=== PATIENT | male | born 1965 | race Caucasian/White ===

== ENCOUNTER 2017-01-17 21:31 | Inpatient (IN) | payer OTHER ==
[~2017-01-17] VITALS: Ht 180.3 cm; Wt 76.2 kg
[~2017-01-17 21:31] MED LIST: ALBU18HF2 INH; ASPI81TA2 PO; CARV3.122 PO; FURO20TA4 PO; INSU3INS6 SQ
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
[2017-01-17] MEDS ORDERED: IV NS 0.9% 1,000 ML BAG IV ONE (22:00)
[2017-01-17] MEDS ORDERED: IV NS 0.9% 1,000 ML ONE (22:02)
[2017-01-17] MEDS ORDERED: IV SET PRIMARY 1 EA INFUS.SET MC ONE (22:02)
[2017-01-17 22:03] LABS: BASOPHILS # (AUTO) 0.1 /CMM (0.0-0.2); BASOPHILS % (AUTO) 0.8 % (0.0-2.0); EOSINOPHILS # (AUTO) 0.3 /CMM (0.0-0.7); EOSINOPHILS % (AUTO) 3.1 % (0.0-6.0); HEMATOCRIT 33 % (39-51); HEMOGLOBIN 10.7 g/dL (13.5-17.5); LYMPHOCYTES # (AUTO) 2.5 /CMM (0.8-4.8); LYMPHOCYTES % (AUTO) 27.7 % (20.0-44.0); MEAN CORPUSCULAR HEMOGLOBIN 27 PG (26.0-33.0); MEAN CORPUSCULAR HGB CONC 32 g/dl (31.0-36.0); MEAN CORPUSCULAR VOLUME 85 fL (80-96); MONOCYTES # (AUTO) 0.4 /CMM (0.1-1.30); NEUTROPHILS # (AUTO) 5.8 /CMM (1.8-8.9); NEUTROPHILS % (AUTO) 64.4 % (43.0-81.0); PLATELET COUNT (AUTO) 312 /CMM (150-450); RDW COEFFICIENT OF VARIATION 20.9 (11.5-15.0); RED BLOOD CELL COUNT(AUTO) 3.91 MIL/uL (4.5-6.0); WHITE BLOOD COUNT (AUTO) 9.1 K/uL (4.3-11.0)
[2017-01-17 22:14] LABS: CALCIUM, SERUM 8.6 mg/dL (8.5-10.1); CREATININE 1.1 mg/dL (0.6-1.3)
--- NOTE | 2017-01-17 22:15 | NUR ---
PT LEFT FOR CT VIA GURNEY.
[2017-01-17 22:19] LABS: BILIRUBIN,DIRECT 0.3 mg/dL (0.0-0.2); BILIRUBIN,TOTAL 0.8 mg/dL (0.2-1.0); TOTAL PROTEIN, SERUM 7.2 g/dL (6.4-8.2)
[2017-01-17 22:21] LABS: TROPONIN I 0.228 ng/mL (0.00-0.056)
[2017-01-17 22:27] LABS: INR 1.06 (0.87-1.13); PROTHROMBIN TIME 11.4 SECS (9.5-12.7)
--- NOTE | 2017-01-17 22:30 | NUR ---
PT RETURNED FROM CT.
--- NOTE | 2017-01-17 22:39 | NUR ---
CALLING REPORT TO MAINTENANCE JOB TITLES.
--- NOTE | 2017-01-17 22:47 | NUR ---
PT TRYING TO STAND. C/O GENERALIZED BODY PAIN WITH MOVEMENT TO STANDING POSITION.
--- NOTE | 2017-01-17 22:55 | NUR ---
PT REC'D 500 ML NS. 1L IVF STOPPED PER SPOILAGE WORKER.
--- NOTE | 2017-01-17 23:06 | NUR ---
RAFAEL RAND AT THE BEDSIDE SUTURING PT'S CHIN LACERATION
--- NOTE | 2017-01-17 23:15 | NUR ---
ADDITIONAL 500ML NS NOT GIVEN AND WASTED PER Isidra GAY NP.
--- NOTE | 2017-01-17 23:16 | NUR ---
PT REC'D 4 SUTURES.
--- NOTE | 2017-01-17 23:41 | NUR ---
Malu anderson in EDM - 01/18/17 at 0005 by ROSA pt left for ct via [facility] with violet palacios rn, dr. burns t liliana, ellyn and rt rios.
--- NOTE | 2017-01-17 23:45 | NUR ---
Malu anderson in LAST - 01/18/17 at 0006 by ROSA pt rec'd 5mg im verseed L [facility].
[2017-01-17 23:55] LABS: DIGOXIN < 0.20 ng/mL (0.90-2.00); MAGNESIUM 1.4 mg/dL (1.8-2.4)
--- NOTE | 2017-01-17 23:56 | NUR ---
UPGRADED TO [facility] BED 115-1
[2017-01-18] VITALS (7 sets, daily range): BP systolic 89–132; BP diastolic 52–83
--- NOTE | 2017-01-18 00:01 | NUR ---
Malu anderson in ED - 01/18/17 at 0011 by ROSA pt rec'd 2 mg ativan IM by sarah beth palacios rn in [facility].
--- NOTE | 2017-01-18 00:13 | NUR ---
PT TRANSPORTED TO [facility] VIA GURNEY PER PROTOCOL.
--- NOTE | 2017-01-18 00:20 | NUR ---
INFORMATION CLERK CASHIER INITIAL NOTES RECEIVED PT IN A GURNEY, PT IS A/O X3, SLURRED SPEECH, PATIENT IS VERBAL.ON ROOM AIR, SATURATING 97%, ON TELEMONITOR AFLUTTER, HR 120, COMPLAINED OF GENERALIZED BODY PAIN MAINLY IN THE RIB AREA, BODY ASSESSMENT DONE, NOTED A LOWER EXTREMITIES MILD WEAKNESS, L AC 18 G IV SITE PATENT AND FLUSHED. ASSISTED PATIENT WITH ADLS, AND CARE, ORIENTED PT IN ROOM, ALL SAFETY MEASURES MAINTAINED. CALL LIGHTS WITHIN REACH.
[2017-01-18] MEDS ORDERED: MAGNESIUM HYDROXIDE 30 ML UDC PO PRN (00:30)
[2017-01-18] MEDS ORDERED: DILTIAZEM HCL 50 MG IV IV ONE (00:30)
[2017-01-18] MEDS ORDERED: ACETAMINOPHEN 325 MG TABLET PO PRN (00:30)
[2017-01-18] MEDS ORDERED: DILTIAZEM HCL 50 MG IV ONE (00:30)
[2017-01-18] MEDS ORDERED: ONDANSETRON HCL/PF 4 MG/2 ML VIAL IVP PRN (00:30)
[2017-01-18] MEDS ORDERED: MAG HYDROX/AL HYDROX/SIMETH 30 ML UDC PO PRN (00:30)
--- NOTE | 2017-01-18 00:36 | NUR ---
CABRERA NOTES PT IS GIVEN CARDIZEM IV PUSH ONE TIME ORDER AND CARDIZEM PO STAT. WILL MONITOR Addendum: 01/18/17 at 0638 by RAMSEY BABIN RN CARDIZEM 10MG IV PUSH ONE TIME ORDER AND CARDIZEM PO 30MG
[2017-01-18] MEDS ORDERED: DIGO125T PO (00:50)
[2017-01-18] MEDS ORDERED: CARV3.122 PO (00:50)
[2017-01-18] MEDS ORDERED: POTA10CA43 PO (00:50)
[2017-01-18] MEDS ORDERED: FLUO25PO10 MC (00:50)
[2017-01-18] MEDS ORDERED: LISI-607 PO (00:50)
[2017-01-18] MEDS ORDERED: AMIO200T2 PO (00:50)
[2017-01-18] MEDS ORDERED: MIRT15TA7 PO (00:50)
[2017-01-18] MEDS ORDERED: DEXTROSE 50%-WATER 50 ML DISP.SYRIN IV PRN (01:00)
[2017-01-18] MEDS ORDERED: Magnesium 1GM/D5W 100ML PREMIX 100 ML IV SCH (01:30)
[2017-01-18] MEDS ORDERED: Magnesium 1GM/D5W 100ML PREMIX 100 ML IV ONE (01:35)
[2017-01-18] MEDS ORDERED: IV SET PRIMARY PUMP SET 1 EA INFUS.SET MC ONE ×2 (01:35→15:11)
[2017-01-18] MEDS ORDERED: MORPHINE SULFATE INJ 2 MG/ML DISP.SYRIN ONE (01:37)
[2017-01-18] MEDS: MORPHINE SULFATE INJ 2 MG/ML DISP.SYRIN IV PRN ×3 (01:44→21:50)
[2017-01-18] MEDS ORDERED: LORAZEPAM INJ 2 MG/ML VIAL IV PRN (02:00)
[2017-01-18] MEDS ORDERED: DILTIAZEM HCL 30 MG TABLET ONE ×2 (02:28→06:14)
[2017-01-18] MEDS ORDERED: DILTIAZEM HCL 30 MG TABLET PO ONE (02:30)
[2017-01-18] MEDS ORDERED: DILTIAZEM HCL 30 MG TABLET PO SCH (02:30)
[2017-01-18 04:58] LABS: MAGNESIUM 1.6 mg/dL (1.8-2.4); PHOSPHORUS 3.8 mg/dL (2.5-4.9)
--- NOTE | 2017-01-18 06:35 | NUR ---
RN NOTES PT HAD 16BEAT VTACH. ASYMPTOMATIC, CARDIZEM 30 MG PO GIVEN ORDERED, WILL CONTINUE TO MONITOR
[2017-01-18] MEDS: DILTIAZEM HCL 30 MG TABLET PO SCH ×2 (06:36→11:45)
[2017-01-18] MEDS: BLOOD SUGAR DIAGNOSTIC 1 EACH STRIP IN SCH ×4 (06:39→21:49)
--- NOTE | 2017-01-18 07:15 | NUR ---
INSIDE FINISHER NOTES NO SIGNIFICANT CHANGES OVERNIGHT, PT IS SLEEPING COMFORTABLY, ON TELE MONITOR AFIB-AFLUTTER. WILL CONTINUE TO MONITOR. IV SITE CDI, NO S/SX OF INFECTION OR INFILTRATION NOTED. NO RESPIRATORY DISTRESS NOTED, ALL MEDS GIVEN ORDERED, ALL SAFETY MEASURES MAINTAINED. CALL LIGHT WITHIN REACH.
--- NOTE | 2017-01-18 07:30 | NUR ---
BALLER TENDER RECEIVED PT IN BED AO X3, ON 2L NC COMPLAINING OF JAW PAIN FROM FALL SUTURES INTACT LOWER JAW NO BLEEDING NOTED, AFIB A FLUTTER ON MONITOR HR LOW 100S, SBP STABLE PT ABLE TO EAT APPLIED DVT PUMP, IV ACCESS PATENT FALL PRECAUTIONS TAKEN CALL LIGHT W./ IN REACH, PT DENIES OF ANY CHEST PAIN OR DISCOMFORT.
[2017-01-18] MEDS ORDERED: LISINOPRIL (5MG) 5 MG TABLET PO SCH (09:00)
[2017-01-18] MEDS ORDERED: ASPIRIN 81 MG TAB.CHEW PO SCH (09:00)
[2017-01-18] MEDS: CARVEDILOL 3.125 MG TABLET PO SCH ×2 (09:00→16:10)
[2017-01-18] MEDS ORDERED: CARVEDILOL 3.125 MG TABLET PO SCH (09:00)
[2017-01-18] MEDS ORDERED: HEPARIN SODIUM, PORCINE 5000 UNITS/1 ML VIAL SQ SCH (09:00)
[2017-01-18] MEDS: FUROSEMIDE 20 MG TABLET PO SCH ×2 (09:32→17:48)
[2017-01-18] MEDS: FLUOXETINE HCL 20 MG CAPSULE PO SCH (09:32)
[2017-01-18] MEDS: POTASSIUM CHLORIDE 10 MEQ TABLET.SA PO SCH (09:32)
[2017-01-18] MEDS: PANTOPRAZOLE 40 MG TABLET.DR PO SCH (09:33)
[2017-01-18] MEDS: AMIODARONE HCL 200 MG TABLET PO SCH (09:39)
[2017-01-18] MEDS: DIGOXIN 0.125 MG TABLET PO SCH (11:45)
[2017-01-18] MEDS: Magnesium 1GM/D5W 100ML PREMIX 100 ML IV SCH ×2 (15:15→16:11)
[2017-01-18] MEDS ORDERED: GUAIFENESIN/CODEINE 10 ML UDC PO PRN (17:00)
[2017-01-18] MEDS: MIRTAZAPINE 15 MG TABLET PO SCH (17:48)
--- NOTE | 2017-01-18 18:15 | NUR ---
TERRITORY ACCOUNT REPRESENTATIVE PT IN BED NO CHANGES IN PT CONDITION, NO COMPLAIN OF CHEST PAIN OR DISCOMFORT, PT SBP BEEN LOW HELD BP MED DR. HERRERA IS AWARE AND MADE SOME ADJUSTMENTS, ALL PT NEEDS MEET FALL PRECAUTIONS TAKEN WILL GIVE REPORT TO PM NURSE FOR CONTINUITY OF CARE.
--- NOTE | 2017-01-18 19:30 | NUR ---
ELECTRICAL SYSTEMS DESIGNER INITIAL NOTE RECEIVED PT IN BED. A/O X4 AND ABLE TO MAKE NEEDS KNOWN. ON ROOM AIR AND SATING WELL. [id number].IV SITE CLEAN, INTACT AND PATENT, FLUSHING WELL.CALL LIGHT WITHIN EASY REACH AT ALL TIMES. WILL CONTINUE TO MONITOR.
[2017-01-18] MEDS: INSULIN DETEMIR 100 UNIT/ML CARTRIDGE SQ SCH (22:00)
--- NOTE | 2017-01-18 22:07 | NUR ---
RN NOTE PT REFUSED LEVEMIR 12 UNITS. BLOOD SUGAR 138 PT REFUSED INSULIN COVERAGE. EDUCATED PT ON RISKS AND BENEFITS. PT STILL REFUSED. WILL CONTINUE TO MONITOR.
[2017-01-19] VITALS: BP 110/78
[2017-01-19 04:00] VITALS: BP 103/72
[2017-01-19 06:40] LABS: BASOPHILS # (AUTO) 0.1 /CMM (0.0-0.2); EOSINOPHILS # (AUTO) 0.3 /CMM (0.0-0.7); EOSINOPHILS % (AUTO) 2.6 % (0.0-6.0); HEMATOCRIT 35 % (39-51); HEMOGLOBIN 11.1 g/dL (13.5-17.5); LYMPHOCYTES # (AUTO) 1.8 /CMM (0.8-4.8); LYMPHOCYTES % (AUTO) 18.6 % (20.0-44.0); MEAN CORPUSCULAR HEMOGLOBIN 28 PG (26.0-33.0); MEAN CORPUSCULAR HGB CONC 32 g/dl (31.0-36.0); MEAN CORPUSCULAR VOLUME 86 fL (80-96); MONOCYTES # (AUTO) 0.6 /CMM (0.1-1.30); MONOCYTES % (AUTO) 6.3 % (2.0-12.0); NEUTROPHILS # (AUTO) 7.1 /CMM (1.8-8.9); NEUTROPHILS % (AUTO) 71.5 % (43.0-81.0); PLATELET COUNT (AUTO) 274 /CMM (150-450); RDW COEFFICIENT OF VARIATION 20.6 (11.5-15.0); RED BLOOD CELL COUNT(AUTO) 4.02 MIL/uL (4.5-6.0); WHITE BLOOD COUNT (AUTO) 9.9 K/uL (4.3-11.0)
--- NOTE | 2017-01-19 07:00 | NUR ---
RECEIVED PT IN BED AO X3, ON 2L NC COMPLAINING OF JAW PAIN FROM FALL SUTURES INTACT LOWER JAW NO BLEEDING NOTED, AFIB A FLUTTER ON MONITOR HR LOW 100S, SBP STABLE PT ABLE TO EAT APPLIED DVT PUMP, IV ACCESS PATENT FALL PRECAUTIONS TAKEN .CALL LIGHT W./ IN REACH, PT DENIES OF ANY CHEST PAIN OR DISCOMFORT.
[2017-01-19] MEDS: BLOOD SUGAR DIAGNOSTIC 1 EACH STRIP IN SCH ×4 (07:12→21:26)
[2017-01-19] MEDS: PANTOPRAZOLE 40 MG TABLET.DR PO SCH ×2 (07:15→09:07)
[2017-01-19 07:21] LABS: CALCIUM, SERUM 7.9 mg/dL (8.5-10.1); MAGNESIUM 1.6 mg/dL (1.8-2.4); POTASSIUM 3.8 mmol/L (3.5-5.1)
[2017-01-19 08:00] VITALS: BP 110/80
[2017-01-19] MEDS: FUROSEMIDE 20 MG TABLET PO SCH ×2 (09:07→17:48)
[2017-01-19] MEDS: POTASSIUM CHLORIDE 10 MEQ TABLET.SA PO SCH (09:07)
[2017-01-19] MEDS: METOPROLOL SUCCINATE 50 MG TAB.SR.24H PO SCH (09:07)
[2017-01-19] MEDS: AMIODARONE HCL 200 MG TABLET PO SCH (09:07)
[2017-01-19] MEDS: FLUOXETINE HCL 20 MG CAPSULE PO SCH (09:08)
[2017-01-19] MEDS: MORPHINE SULFATE INJ 2 MG/ML DISP.SYRIN IV PRN ×2 (09:11→21:32)
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
[2017-01-19 12:00] VITALS: BP 100/76
[2017-01-19] MEDS ORDERED: IV SET PRIMARY PUMP SET 1 EA INFUS.SET MC ONE (12:54)
[2017-01-19] MEDS ORDERED: IPRATROPIUM NEB FS 0.5 MG/2.5 ML AMPUL.NEB ONE (12:54)
[2017-01-19] MEDS ORDERED: IV NS 0.9% 250 ML IV ONE (12:55)
[2017-01-19] MEDS ORDERED: SECONDARY IV SET 1 EA INFUS.SET MC ONE (13:00)
[2017-01-19] MEDS: DIGOXIN 0.125 MG TABLET PO SCH (13:05)
[2017-01-19] MEDS: Magnesium 1GM/D5W 100ML PREMIX 100 ML IV SCH ×2 (13:15→14:32)
[2017-01-19 16:00] VITALS: BP 96/76
[2017-01-19] MEDS: RIVAROXABAN 10 MG TABLET PO SCH (17:45)
[2017-01-19] MEDS: MIRTAZAPINE 15 MG TABLET PO SCH (17:45)
[2017-01-19] MEDS: ALBUTEROL FS 2.5 MG/0.5 ML VIAL.NEB NEB PRN (17:55)
[2017-01-19] MEDS: IPRATROPIUM NEB FS 0.5 MG/2.5 ML AMPUL.NEB NEB PRN (17:55)
--- NOTE | 2017-01-19 19:13 | NUR ---
pt in stable condition.no c/o pain,no s/s of distress.breathing even and unlabored.i.v site cdi and patent.safety measures in place.bed in low and locked position.
--- NOTE | 2017-01-19 19:30 | NUR ---
RN OPENING NOTES: RECEIVED PT ON BED NOT IN APPARENT DISTRESS. NOTED WITH SOB DURING EXERTION AND AMBULATION. ADVISED O2 PER NASAL CANNULA BUT PATIENT IS REFUSING AND SAID" I AM FINE WITHOUT IT FOR NOW, I WILL WEAR IT WHEN IM SHORT OF BREATH." WITH IV ACCESS ON LFA G18 PATENT AND INTACT.KEPT SL AT THIS TIME. WITH COMPLAINTS OF PAIN OVER RIBS WHENEVER HE COUGHS. RATED 3/10 FOR NOW. TO MONITOR FOR FURTHER PAIN, TO MANAGE PRN. SAFETY MEASURES ENSURED. CALL LIGHT WITHIN REACH. BED ALARM ON. SAFETY MEASURES ENSURED. TO MONITOR PT.
[2017-01-19] MEDS: INSULIN DETEMIR 100 UNIT/ML CARTRIDGE SQ SCH (21:29)
--- NOTE | 2017-01-19 22:00 | NUR ---
RN NOTES: PATIENT REFUSING INSULIN AND LEVEMIR COVERAGE AT THIS TIME. BS AT 148. EXPLAINED RISK OF NOT TAKING TH EMEDS. CONCEDED TO PATIENT'S REQUEST AT THIS TIME. CONTINUOUSLY MONITORED.
[2017-01-19] MEDS: TEMAZEPAM 15 MG CAPSULE PO PRN (23:16)
[2017-01-19 23:51] VITALS: BP 109/88
--- NOTE | 2017-01-20 01:30 | NUR ---
MS RN NOTES RECEIVED CONTINUITY OF CARE FROM CAMILO.
[2017-01-20 04:00] VITALS: BP 111/92
--- NOTE | 2017-01-20 07:00 | NUR ---
RN OPENING NOTES: RECEIVED PT ON BED NOT S/S DISTRESS. WITH IV ACCESS ON LFA G18 PATENT AND INTACT.KEPT SL AT THIS TIME. WITH COMPLAINTS OF PAIN OVER RIBS WHENEVER HE COUGHS. RATED 3/10 FOR NOW. TO MONITOR FOR FURTHER PAIN, TO MANAGE PRN. SAFETY MEASURES ENSURED. CALL LIGHT WITHIN REACH. BED ALARM ON. SAFETY MEASURES ENSURED. TO MONITOR PT.
[2017-01-20] MEDS: BLOOD SUGAR DIAGNOSTIC 1 EACH STRIP IN SCH ×4 (07:10→21:21)
--- NOTE | 2017-01-20 07:21 | NUR ---
MS RN CLOSING NOTES NO SIGNIFICANT CHANGES OVERNIGHT. ALL NEEDS ANTICIPATED AND MET. NO C/O SOB, NO C/O PAIN OR DISCOMFORT. SIDE RAILS UP AND LOCKED. BED KEPT AT LOWEST POSITION. CALL LIGHT KEPT WITHIN EASY REACH. CONTINUITY OF CARE ENDORSED TO AM NURSE.
[2017-01-20 07:26] LABS: CALCIUM, SERUM 8.2 mg/dL (8.5-10.1); CREATININE 1.3 mg/dL (0.6-1.3); MAGNESIUM 1.8 mg/dL (1.8-2.4); POTASSIUM 4.4 mmol/L (3.5-5.1)
[2017-01-20 08:00] VITALS: BP 112/83
[2017-01-20] MEDS: POTASSIUM CHLORIDE 10 MEQ TABLET.SA PO SCH (09:34)
[2017-01-20] MEDS: METOPROLOL SUCCINATE 50 MG TAB.SR.24H PO SCH (09:34)
[2017-01-20] MEDS: AMIODARONE HCL 200 MG TABLET PO SCH (09:35)
[2017-01-20] MEDS: FUROSEMIDE 20 MG TABLET PO SCH ×2 (09:44→17:39)
[2017-01-20] MEDS: FLUOXETINE HCL 20 MG CAPSULE PO SCH (09:44)
[2017-01-20] MEDS: MORPHINE SULFATE INJ 2 MG/ML DISP.SYRIN IV PRN ×2 (09:45→20:43)
[2017-01-20] MEDS: ALBUTEROL FS 2.5 MG/0.5 ML VIAL.NEB NEB PRN (10:24)
[2017-01-20] MEDS: IPRATROPIUM NEB FS 0.5 MG/2.5 ML AMPUL.NEB NEB PRN (10:24)
--- NOTE | 2017-01-20 10:57 | NUR ---
pt resting,,,,pain med given earlier for c/o on left side where pt landed with a fall...no othr c/o notd at this tme...request breathing treatment et 02 sat=98. resp in room with reatment as requested
[2017-01-20] MEDS: INSULIN REGULAR, HUMAN 100 UNIT/ML 3 ML VIAL SQ PRN (12:33)
[2017-01-20] MEDS: DIGOXIN 0.125 MG TABLET PO SCH (13:00)
[2017-01-20] MEDS: MIRTAZAPINE 15 MG TABLET PO SCH (17:38)
[2017-01-20] MEDS: RIVAROXABAN 10 MG TABLET PO SCH (17:39)
[2017-01-20 20:00] VITALS: BP 102/79
--- NOTE | 2017-01-20 20:00 | NUR ---
RN INITIAL NOTE PT ON THE BED RESTING WITHOUT ANY DISTRESS , A/O X4. BREATHING EVEN AND UNLABORED ON 2 LPM VIA NC. PERIPHERAL IV ON LFA 18G G INTACT AND PATENT . VERBALIZED TOLERABLE PAIN AT THIS TIME. CONTINENT FOR BOWEL/BLADDER. ABLE TO GO TO THE RESTROOM. BED IN THE LOWEST/LOCKED POSITION. CALL LIGHT WITHIN REACH. WILL CONTINUE TO MONITOR .
--- NOTE | 2017-01-20 20:45 | NUR ---
RN NOTE; PRN MORPHINE 2 MG IV GIVEN FOR GENERALIZED PAIN 04/28, TOLERATED WELL AT THIS TIME, WILL CONTINUE TO MONITOR
[2017-01-20] MEDS: INSULIN DETEMIR 100 UNIT/ML CARTRIDGE SQ SCH (21:21)
[2017-01-20] MEDS: TEMAZEPAM 15 MG CAPSULE PO PRN (23:01)
--- NOTE | 2017-01-20 23:10 | NUR ---
RN NOTE; PRN RESTORIL 15 MG PO GIVEN FOR INSOMNIA PER PT REQUEST , WILL REASSESS.
[2017-01-21 04:00] VITALS: BP 115/85
[2017-01-21] MEDS: MORPHINE SULFATE INJ 2 MG/ML DISP.SYRIN IV PRN (06:27)
[2017-01-21] MEDS: BLOOD SUGAR DIAGNOSTIC 1 EACH STRIP IN SCH (06:30)
[2017-01-21] MEDS: INSULIN REGULAR, HUMAN 100 UNIT/ML 3 ML VIAL SQ PRN (06:30)
--- NOTE | 2017-01-21 06:30 | NUR ---
RN NOTE; PRN MORPHINE 2 MG IV GIVEN FOR GENERALIZED PAIN 04/28, TOLERATED WELL AT THIS TIME, WILL CONTINUE TO MONITOR
--- NOTE | 2017-01-21 07:17 | NUR ---
RN EOS NOTE; NO ANY DISTRESS NOTED DURING THE SHIFT, ALL NEEDS ATTENDED PROMPTLY, KEPT CLEAN AND DRY , CALL LIGHT WITHIN REACH, ENDORSED TO DAY SHIFT RN FOR CONTINUITY OF CARE.
--- NOTE | 2017-01-21 07:59 | NUR ---
MS/RN NOTES RECIEVED PATIENT IN BED, SLEEPING, AROUSED TO VERBAL, TACTILE STIMULI. NO DISTRESS/DISCOMFORT NOTED, NO S/S OF PAIN. BREATHING EVEN AND UNLABORED ON ROOM AIR. IV TO LEFT FA INTACT AND PATIENT H/L. SAFETY MEASURES RENDERED, CALL LIGHT PLACED WITHIN REACH. WILL CONTINUE TO MONITOR.
[2017-01-21 08:00] VITALS: BP 109/88
[2017-01-21 08:07] LABS: CALCIUM, SERUM 8.2 mg/dL (8.5-10.1); CREATININE 1.4 mg/dL (0.6-1.3); POTASSIUM 3.5 mmol/L (3.5-5.1)
[2017-01-21 09:00] VITALS: BP 109/88
[2017-01-21] MEDS: AMIODARONE HCL 200 MG TABLET PO SCH (09:00)
[2017-01-21] MEDS: METOPROLOL SUCCINATE 50 MG TAB.SR.24H PO SCH (09:00)
[2017-01-21] MEDS: FLUOXETINE HCL 20 MG CAPSULE PO SCH (09:00)
[2017-01-21] MEDS: PANTOPRAZOLE 40 MG TABLET.DR PO SCH (09:23)
[2017-01-21] MEDS: FUROSEMIDE 20 MG TABLET PO SCH (09:23)
[2017-01-21] MEDS: POTASSIUM CHLORIDE 10 MEQ TABLET.SA PO SCH (09:23)
--- NOTE | 2017-01-21 12:45 | NUR ---
MS/RN NOTES DR. FULLER AT BEDSIDE, DISCUSSING PLAN OF CARE, PATIENT MAY POSSIBLE BE DISCHARGED TODAY.
[2017-01-21] MEDS ORDERED: RIVA10TA PO (12:53)
[2017-01-21] MEDS ORDERED: METO50TA7 PO (12:53)
[2017-01-21] MEDS ORDERED: Digoxin PO (12:53)
[2017-01-21] MEDS: DIGOXIN 0.125 MG TABLET PO SCH (12:57)
--- NOTE | 2017-01-21 16:00 | NUR ---
MS/RN NOTES D/C ORDER RECEIVED, ALL FORMS COMPLETED, SIGNED, AND GIVEN BACK TO PATIENT. DISCHARGE INSTRUCTIONS GIVEN TO PATIENT REGARDING NEW MEDICATIONS, PROVIDED PRESCRIPTION OF NEW MEDS AND REVIEWED ALL ORDERS, WHERE PATIENT VERBALIZED PROPER UNDERSTANDING. IV REMOVED AND COVERED WITH 4X4. ALL PICTURES TAKEN AND PLACED IN CHART. ALL BELONGINGS RETURNED AND SIGNED. PATIENT LEFT VIA TAXI VOUCHER IN STABLE CONDITION.
== END 2017-01-21 16:10 | disposition home or self-care (01) | DRG 190 ==
LOC: ER 21:32 → TELE 22:31 → TELE-TD 23:58 → TELE1 01-18 16:58 → MEDSG1 01-19 16:22
PROVIDERS: ADMIT Nurse Practitioner Acute Care; ATTEND Nurse Practitioner Acute Care
PROC: 0HQ1XZZ Repair Face Skin, External Approach (ICD-10-PCS; principal; 2017-01-17)
DX: I21.4 Non-ST elevation (NSTEMI) myocardial infarction (principal); I50.23 Acute on chronic systolic (congestive) heart failure; D68.59 Other primary thrombophilia; I42.9 Cardiomyopathy, unspecified; I95.9 Hypotension, unspecified; I11.0 Hypertensive heart disease with heart failure; E44.1 Mild protein-calorie malnutrition; I48.92 Unspecified atrial flutter; Z79.01 Long term (current) use of anticoagulants; E83.42 Hypomagnesemia; D64.9 Anemia, unspecified; E11.9 Type 2 diabetes mellitus without complications; E66.9 Obesity, unspecified; F32.9 Major depressive disorder, single episode, unspecified; I25.10 Atherosclerotic heart disease of native coronary artery without angina pectoris; I25.2 Old myocardial infarction; I48.91 Unspecified atrial fibrillation; Z86.73 Personal history of transient ischemic attack (TIA), and cerebral infarction without residual deficits; Z87.891 Personal history of nicotine dependence; Z96.659 Presence of unspecified artificial knee joint; Z91.19 Patient's noncompliance with other medical treatment and regimen; F41.9 Anxiety disorder, unspecified; J45.909 Unspecified asthma, uncomplicated; F10.21 Alcohol dependence, in remission; Z87.898 Personal history of other specified conditions; F15.90 Other stimulant use, unspecified, uncomplicated; Z68.23 Body mass index [BMI] 23.0-23.9, adult; S01.81XA Laceration without foreign body of other part of head, initial encounter; V18.4XXA Pedal cycle driver injured in noncollision transport accident in traffic accident, initial encounter; Y92.89 Other specified places as the place of occurrence of the external cause; Y99.9 Unspecified external cause status; Y93.55 Activity, bike riding; R55 Syncope and collapse
CPT/HCPCS: 36415; 70450-TC; 70490-TC; 71010-TC; 80048-TC; 80061-TC; 80076-TC; 80162-TC; 82962-TC; 83735-TC; 84100-TC; 84484-TC; 85025-TC; 85730-TC; 87081-TC; 93307-TC; A4606; A6403; J1644; J1815; J2270; J3475; J3490; J7030; J7050; Z7610